=== PATIENT | female | born 1980 | race Caucasian/White ===

== ENCOUNTER → 2024-01-13 06:27 | Day surgery (SDC) | payer OTHER, SELFPAY | LOC: GI 06:27 | PROVIDERS: ATTENDING PHYSICIAN Internal Medicine Gastroenterology | DX: Z12.11 Encounter for screening for malignant neoplasm of colon (principal); K64.8 Other hemorrhoids | CPT/HCPCS: G0121 ==

== ENCOUNTER 2024-09-17 06:13 | Day surgery (SDC) | payer BC, SELFPAY ==
[2024-09-17] VITALS (9 sets, daily range): BP systolic 94–118; BP diastolic 55–73; BMI 30.3
[2024-09-17] MEDS: CELEBREX 200 MG PO (08:32)
[2024-09-17] MEDS: TYLENOL 1000 MG PO (08:32)
[2024-09-17] MEDS: NORMOSOL-R/PLASMALYTE-A 1000 IV (08:40)
== END 2024-09-17 12:10 | disposition home or self-care (01) ==
LOC: SDS 06:13
PROVIDERS: ATTENDING PHYSICIAN Orthopaedic Surgery; FAMILY PHYSICIAN Family Medicine
DX: S83.232A Complex tear of medial meniscus, current injury, left knee, initial encounter (principal); X58.XXXA Exposure to other specified factors, initial encounter
CPT/HCPCS: 29881

== ENCOUNTER → 2025-02-01 08:05 | Outpatient (REF) | payer BC, SELFPAY | LOC: RCS 08:05 | PROVIDERS: ATTENDING PHYSICIAN Internal Medicine; FAMILY PHYSICIAN Family Medicine | DX: R00.2 Palpitations (principal); Z82.49 Family history of ischemic heart disease and other diseases of the circulatory system | CPT/HCPCS: 93306 ==